=== PATIENT | male | born 1990 | race Caucasian/White ===

== ENCOUNTER 2017-07-19 21:46 | Emergency (ER) | payer BC, OTHER ==
[~2017-07-19] VITALS: Ht 165.1 cm; Wt 81.6 kg
[2017-07-19 22:03] VITALS: BP 132/79
[2017-07-19] MEDS ORDERED: BUPIVACAINE 0.5% 50 ML VIAL. IJ ONE (22:15)
--- NOTE | 2017-07-19 22:20 | PHYS DOC ---
Past Medical History Past Medical History: No Pertinent History Past Surgical History: Appendectomy Alcohol Use: None Drug Use: None Adult General Chief Complaint Chief Complaint: FINGER INJURY HPI HPI Patient is a 27 year old medical presents with moderate pain to the left pinky finger that began yesterday after he smashed it accidentally working on his car. Review of Systems Review of Systems Constitutional: Denies fever or chills [] Musculoskeletal: Left pinky finger pain Integument: Denies rash or skin lesions [] Neurologic: Denies headache, focal weakness or sensory changes [] Current Medications Current Medications Current Medications Medications (Trade) Dose Ordered Sig/Travis Start Time Stop Time Status Last Admin Dose Admin Bupivacaine HCl (Marcaine 0.5%) 50 ml 1X ONCE 07/19/17 22:15 07/19/17 22:16 DC 07/19/17 22:30 50 ML Allergies Allergies Allergies Coded Allergies Type Severity Reaction Last Updated Verified No Known Drug Allergies 10/22/14 No Physical Exam Physical Exam Constitutional: Well developed, well nourished, no acute distress, non-toxic appearance. [] HENT: Normocephalic, atraumatic, bilateral external ears normal, oropharynx moist, no oral exudates, nose normal. [] Eyes: PERRLA, EOMI, conjunctiva normal, no discharge. [] Neck: Normal range of motion, no tenderness, supple, no stridor. [] Cardiovascular:Heart rate regular rhythm, no murmur [] Lungs & Thorax: Bilateral breath sounds clear to auscultation [] Abdomen: Bowel sounds normal, soft, no tenderness, no masses, no pulsatile masses. [] Skin: Warm, dry, no erythema, no rash. [] Back: No tenderness, no CVA tenderness. [] Extremities: Left pinky finger tip with moderate soft tissue swelling. There is moderate subungual hematoma underneath the left pinky finger nailbed. Full range of motion to the left pinky finger. Adequate ulnar sensation to the left pinky finger. Cap refill less than 2 seconds the left pinky finger. +2 left radial pulse. Neurologic: Alert and oriented X 3, normal motor function, normal sensory function, no focal deficits noted. [] Psychologic: Affect normal, judgement normal, mood normal. [] Current Patient Data Vital Signs Vital Signs Date Time Temp Pulse Resp B/P (MAP) Pulse Ox O2 Delivery O2 Flow Rate FiO2 07/19/17 22:03 98.4 65 18 99 Room Air 98.4 EKG EKG [] Radiology/Procedures Radiology/Procedures Indication: subungual hematoma to the pinky finger Procedure: The patient was positioned appropriately. Digital block was performed to the left pinky finger with 0.5% of bupivacaine successfully. Finger was cleaned with 100 ML of normal saline and Betadine. Perfect temp cautery was used to make a hole in the center of the nail and moderate blood was evacuated from the nail successfully. The finger was covered with non stick dressing and splinted by me. Neurovascular exam is normal post splinting. Course & Med Decision Making Course & Med Decision Making Pertinent Labs and Imaging studies reviewed. (See chart for details) Patient is in the ED with left pinky finger contusion after smashing it yesterday. Left pinky finger x-rays interpreted by Dr. Serna were noted for tuft fracture. Patient also had a subungual hematoma to the pinky finger which was drained also drained by me as noted in procedures and finger was splinted. F /u with hand surgeon tomorrow. Tetanus is up to date. Discharged with cephalexin and [place] for pain. Dragon Disclaimer Dragon Disclaimer This electronic medical record was generated, in whole or in part, using a voice recognition dictation system. Departure Departure Impression: Primary Impression: Subungual hematoma of digit of hand Additional Impression: Closed fracture of tuft of distal phalanx of finger Disposition: 01 HOME, SELF-CARE Condition: STABLE Referrals: CATA MTZ MD (PCP) Please contact [facility] Hand Surgeon by calling the [phone] tomorrow for a follow up appointment. Patient Instructions: Finger Fracture, Xlat-yo-Hilf, Subungual Hematoma, Easy- to-Read Additional Instructions: You were seen for left pinky finger tuft fracture. Please contact [facility] Hand Surgeon by calling the [phone] tomorrow for a follow up appointment. Ice and elevate the extremity. Scripts Hydrocodone/Apap 5-325 (NORCO 5-325 TABLET) 1 Each Tablet 1-2 TAB PO Q4-6HRS, #40 TAB Prov: [employer] 07/19/17 Cephalexin (CEPHALEXIN) 500 Mg Tablet 1 TAB PO QID, #40 TAB Prov: CAMILLA HOPE APRN 07/19/17 Problem Qualifiers Primary Impression: Subungual hematoma of digit of hand Encounter type: initial encounter Qualified Codes: S60.10XA - Contusion of unspecified finger with damage to nail, initial encounter CAMILLA HOPE APRN Jul 19, 2017 22:20
[2017-07-19] MEDS ORDERED: HYDR-971 PO (23:06)
[2017-07-19] MEDS ORDERED: CEPH500T PO (23:06)
--- NOTE | 2017-07-20 07:22 | RAD ---
Hand x-rays Indication: Pain fifth digit, smashed finger. Technique: AP hand and 2 views of the fifth finger Comparison: None Findings: There is minimally displaced fracture of the tuft of the fifth finger with no articular extension. Surrounding soft tissue edema. Impression: Fracture of the fifth finger as described above.
== END 2017-07-19 23:10 | disposition home or self-care (01) ==
LOC: ER 21:46
DX: S62.637A Displaced fracture of distal phalanx of left little finger, initial encounter for closed fracture (principal); S60.052A Contusion of left little finger without damage to nail, initial encounter; W23.0XXA Caught, crushed, jammed, or pinched between moving objects, initial encounter; Y93.89 Activity, other specified; Y99.8 Other external cause status; Y92.89 Other specified places as the place of occurrence of the external cause
CPT/HCPCS: 10140; 73140; 99284; J3490

== ENCOUNTER → 2017-08-07 | Outpatient (CLI) | payer OTHER ==
[2017-07-19 22:03] VITALS: BP 132/79
[~2017-08-07] MED LIST: CEPH500T PO; HYDR-971 PO
--- NOTE | 2017-08-07 16:10 | KCIC ---
Examination: 3 views of the left hand HISTORY: History of fracture of the tuft of the fifth digit COMPARISON: 07/19/2017 Findings. Comminuted mild displaced fracture of the distal tuft of the distal phalanx of the fifth digit. This is unchanged compared to prior exam. IMPRESSION: Unchanged comminuted mild displaced fracture of the distal tuft of the distal phalanx of the fifth digit. Electronically signed by: Emeterio Turner MD (08/07/2017 4:07 PM) [id number]
== END | disposition home or self-care (01) ==
LOC: KCIC 15:24
PROVIDERS: ATTEND Physician Assistant Medical
DX: S62.637D Displaced fracture of distal phalanx of left little finger, subsequent encounter for fracture with routine healing (principal); X58.XXXD Exposure to other specified factors, subsequent encounter
CPT/HCPCS: 73130